=== PATIENT | male | born 1960 | race Caucasian/White ===

== ENCOUNTER 2023-10-13 05:41 | Observation (INO) | payer MEDICARE ==
--- NOTE | 2023-10-13 05:47 | ERPHSYRPT ---
- History of Present Illness Source: patient, police Exam Limitations: clinical condition, other (Personable intoxication) Timing/Duration: today Severity: moderate Associated Symptoms: other (Patient unable to provide accurate information) <GALEN JAMISON - Last Filed: 10/13/23 06:49> <RAPHAELBRIDGETTNEGRITA LANG - Last Filed: 10/13/23 14:55> - History of Present Illness Time Seen by Provider: 10/13/23 05:46 Physician History: This is a 63-year-old white male patient who was brought in by law enforcement secondary to him being found wandering [place] [address]. Patient was "in a manic state" and confused when officers arrived to evaluate him. He could not provide information. He was babbling incoherently. The patient could not provide us any medical history. The officers were bringing him into the emergency department when he suddenly collapsed and felt to the ground in their grasp and we brought him into the emergency room. Patient was maintaining his airway on his own. Suddenly he was more awake but still babbling incoherently. He is not answering questions but asking several questions unrelated to the situation. (GALEN JAMISON) Allergies/Adverse Reactions: No Known Drug Allergies Allergy (Unverified 10/13/23 06:16) pt states no allergies Home Medications: ALPRAZolam [Alprazolam] 2 mg PO UD 10/13/23 [History] levETIRAcetam [Levetiracetam] 500 mg PO BID 10/13/23 [History] Travel Risk - International Travel Have you traveled outside of the country in past 3 weeks: No - Emerging Infectious Disease Are you exhibiting symptoms associated with any current EIDs: No <GALEN JAMISON - Last Filed: 10/13/23 06:49> - Review of Systems Constitutional: No Symptoms Eyes: No Symptoms Ears, Nose, & Throat: No Symptoms Respiratory: No Symptoms Cardiac: No Symptoms Abdominal/Gastrointestinal: No Symptoms Genitourinary Symptoms: No Symptoms Musculoskeletal: No Symptoms Skin: Other (Diaphoresis generalized) Neurological: Other (Confused) Endocrine: Excessive Sweating Hematologic/Lymphatic: No Symptoms Immunological/Allergic: No Symptoms All Other Systems: Reviewed and Negative <GALEN JAMISON - Last Filed: 10/13/23 06:49> - Past Medical History Pertinent Past Medical History: Yes (Unknown at this time) <JAMISONGALEN KaceyCheri - Last Filed: 10/13/23 06:49> - Physical Exam General Appearance: moderate distress, anxiety, other (Confused) Eye Exam: PERRL/EOMI, eyes nml inspection Ears, Nose, Throat Exam: dry mucous membranes Neck Exam: normal inspection, non-tender, supple, full range of motion Respiratory Exam: normal breath sounds, lungs clear, airway intact, No chest tenderness, No respiratory distress Cardiovascular Exam: regular rate/rhythm, normal heart sounds, normal peripheral pulses Gastrointestinal/Abdomen Exam: soft, normal bowel sounds, No tenderness Rectal Exam: not done Back Exam: normal inspection, normal range of motion, No CVA tenderness, No vertebral tenderness Extremity Exam: normal inspection, normal range of motion, pelvis stable Neurologic Exam: alert, cooperative, cotton bag sewer II-XII nml as tested, confusion, intoxicated appearance Lymphatic Exam: No adenopathy SpO2 Interpretation: normal O2 Delivery: Room Air <GALEN JAMISON - Last Filed: 10/13/23 06:49> - Nursing Vital Signs Nursing Vital Signs: Initial Vital Signs Pulse Rate 127 H 10/13/23 05:45 Respiratory Rate 22 10/13/23 05:45 Blood Pressure 117/98 10/13/23 05:45 O2 Sat by Pulse Oximetry 99 10/13/23 05:45 Pain Scale Pain Intensity 0 - Course Nursing assessment & vital signs reviewed: Yes <GALEN JAMISON KaceyCheri - Last Filed: 10/13/23 06:49> Ordered Tests: Active Orders 24 hr Category Date Time Status Marketing Production Coordinator STAT Care 10/13/23 05:55 Completed Cath for Specimen-Straight STAT Care 10/13/23 05:56 Completed EKG-ER Only STAT Care 10/13/23 05:54 Completed IV Insertion STAT Care 10/13/23 05:54 Completed NPO (ED) STAT Care 10/13/23 05:55 Completed POCT Glucose Check STAT Care 10/13/23 05:54 Completed Pulse Oximetry (ED) STAT Care 10/13/23 05:54 Completed CHEST 1 VIEW (PORTABLE) Stat Exams 10/13/23 07:54 Completed HEAD WITHOUT CONTRAST [CT] Stat Exams 10/13/23 05:55 Completed ACETAMINOPHEN Stat Lab 10/13/23 06:05 Completed BLOOD CULTURE Stat Lab 10/13/23 06:15 Received BMP Stat Lab 10/13/23 09:15 Completed CBC W DIFF Stat Lab 10/13/23 06:05 Completed CMP Stat Lab 10/13/23 06:05 Completed ETHYL ALCOHOL Stat Lab 10/13/23 06:05 Completed Lactic Acid Stat Lab 10/13/23 05:54 Completed Lactic Acid Stat Lab 10/13/23 08:08 Completed SALICYLATE Stat Lab 10/13/23 06:05 Completed UA W/RFX UR CULTURE Stat Lab 10/13/23 08:25 Completed Urine Triage Profile Stat Lab 10/13/23 08:15 Completed Transfer Order Routine Transfer 10/13/23 Completed Medication Summary Generic Name Dose Route Start Last Admin Trade Name Elijah PRN Reason Stop Dose Admin Acetaminophen 650 mg 10/13/23 13:07 Acetaminophen 325 Mg Tablet PO 11/12/23 13:06 Q4H PRN PRN PAIN, FEVER, HEADACHE Folic Acid 1 mg 10/14/23 10:00 Folic Acid 1 Mg Tablet PO 11/13/23 09:59 DAILY JAMES Sodium Chloride 1,000 mls @ 100 mls/hr 10/13/23 13:15 Sodium Chloride 0.9% 1000 Ml IV 11/12/23 13:14 .Q10H JAMES Levetiracetam 500 mg 10/13/23 22:00 Levetiracetam 500 Mg Tablet PO 11/12/23 21:59 BID JAMES Lorazepam 1 mg 10/13/23 13:23 Lorazepam 2 Mg/1 Ml 2 Mg Vial IV 11/12/23 13:22 PRN PRN CIWA SCORE Multivitamins Therapeutic 1 tab 10/14/23 10:00 Multivitamins,Therapeutic 1 Tab Tab PO 11/13/23 09:59 QAM JAMES Ondansetron HCl 4 mg 10/13/23 13:07 Ondansetron Hcl 4 Mg/2 Ml Vial IV 11/12/23 13:06 Q6H PRN PRN NAUSEA/VOMITING Thiamine HCl 100 mg 10/14/23 10:00 Thiamine Hcl 100 Mg Tablet PO 11/13/23 09:59 DAILY JAMES Discontinued Medications Generic Name Dose Route Start Last Admin Trade Name Freoscar PRN Reason Stop Dose Admin Alprazolam 0.5 mg 10/13/23 07:28 10/13/23 07:43 Alprazolam 0.5 Mg Tablet PO 10/13/23 07:29 0.5 mg STAT ONE Administration Alprazolam Confirm 10/13/23 07:37 Alprazolam 0.5 Mg Tablet Administered 10/13/23 07:38 Dose 0.5 mg .ROUTE .STK-MED ONE Sodium Chloride 1,000 mls @ 999 mls/hr 10/13/23 05:54 10/13/23 09:25 Sodium Chloride 0.9% 1000 Ml IV 10/13/23 06:54 Infused .Q1H1M STA Infusion Sodium Chloride Confirm 10/13/23 06:19 Sodium Chloride 0.9% 1000 Ml Administered 10/13/23 06:20 Dose 1,000 mls @ ud .ROUTE .STK-MED ONE Lactated Ringer's 1,000 mls @ 999 mls/hr 10/13/23 06:26 10/13/23 10:06 Lactated Ringers IV 10/13/23 07:26 Not Given .Q1H1M ONE Levetiracetam 500 mg/ Dextrose 105 mls @ 400 mls/hr 10/13/23 07:28 10/13/23 07:48 IV 10/13/23 07:43 400 mls/hr STAT ONE Administration Lactated Ringer's Confirm 10/13/23 07:37 Lactated Ringers Administered 10/13/23 07:38 Dose 1,000 mls @ ud IV .STK-MED ONE Piperacillin Sod/Tazobactam 100 mls @ 200 mls/hr 10/13/23 07:54 10/13/23 08:19 Sod 3.375 gm/ Sodium Chloride IV 10/13/23 08:23 200 mls/hr STAT ONE Administration Sodium Chloride Confirm 10/13/23 07:58 Sodium Chloride 100ml Mini-Bag Plus Administered 10/13/23 07:59 Dose 100 mls @ ud IV .STK-MED ONE Lorazepam 1 mg 10/13/23 05:54 10/13/23 06:30 Lorazepam 2 Mg/1 Ml 2 Mg Vial IV 10/13/23 05:55 1 mg STAT ONE Administration Lorazepam Confirm 10/13/23 06:19 Lorazepam 2 Mg/1 Ml 2 Mg Vial Administered 10/13/23 06:20 Dose 2 mg .ROUTE .STK-MED ONE Piperacillin Sod/Tazobactam Sod Confirm 10/13/23 07:57 Piperacillin/Tazobactam Sodium 3.375 Gm Vial Administered 10/13/23 07:58 Dose 3.375 gm IV .STK-MED ONE Sodium Bicarbonate 50 meq 10/13/23 06:26 10/13/23 06:35 Sodium Bicarbonate 1 Meq/Ml 50ml Syringe IV 10/13/23 06:27 50 meq STAT ONE Administration Sodium Bicarbonate Confirm 10/13/23 06:35 Sodium Bicarbonate 1 Meq/Ml 50ml Syringe Administered 10/13/23 06:36 Dose 50 meq IV .STK-MED ONE Lab/Rad Data: Laboratory Result Diagrams 10/13/23 06:05 10/13/23 09:15 Laboratory Results 10/13/23 10/13/23 10/13/23 Range/Units 09:15 09:15 08:25 WBC (4.23-9.07) x10^3/uL RBC (4.63-6.08) x10^6/uL Hgb (13.7-17.5) g/dL Hct (40.1-51.0) % MCV (79.0-92.2) fL MCH (25.7-32.2) pg MCHC (32.3-36.5) g/dL RDW (11.6-14.4) % Plt Count (163-337) x10^3/uL MPV (9.4-12.4) fL Gran % (34.0-67.9) % Immature Gran % (Auto) (0.001-0.429) % Nucleat RBC Rel Count (0.00-0.2) % Eos # (Auto) (0.04-0.54) x10^3/uL Immature Gran # (Auto) (0.001-0.031) x10^3u/L Absolute Lymphs (auto) (1.32-3.57) x10^3/uL Absolute Monos (auto) (0.30-0.82) x10^3/uL Absolute Nucleated RBC (0.00-0.012) x10^3u/L Lymphocytes % (21.8-53.1) % Monocytes % (5.3-12.2) % Eosinophils % (0.8-7.0) % Basophils % (0.2-1.2) % Absolute Granulocytes (1.78-5.38) x10^3/uL Basophils # (0.01-0.08) x10^3/uL Sodium 139 (135-145) mmol/L Potassium 3.5 (3.5-5.1) mmol/L Chloride 108 H (98-107) mmol/L Carbon Dioxide 24 (22-30) mmol/L Anion Gap 10.8 (5-15) MEQ/L BUN 19 (9-20) mg/dL Creatinine 0.70 (0.66-1.25) mg/dL Estimated GFR 102.3 ML/MIN Glucose 107 H (74-106) mg/dL Lactic Acid (0.4-2.0) Calcium 8.6 (8.4-10.2) mg/dL Total Bilirubin (0.2-1.3) mg/dL AST (17-59) U/L ALT (0-50) U/L Alkaline Phosphatase (38-126) U/L Ammonia (9-30) umol/L Serum Total Protein (6.3-8.2) g/dL Albumin (3.5-5.0) g/dL Procalcitonin 0.055 (0.030-0.080) ng/mL Urine Color Yellow (Yellow) Urine Appearance Clear (Clear) Urine pH 6.5 (4.6-8.0) Ur Specific Holder <=1.005 (1.005-1.030) Urine Protein Negative (Negative) Urine Glucose (UA) Negative (Negative) mg/dL Urine Ketones Negative (Negative) Urine Blood Negative (Negative) Urine Nitrite Negative (Negative) Urine Bilirubin Negative (Negative) Urine Urobilinogen 0.2 (0.2) mg/dL Ur Leukocyte Esterase Negative (Negative) U Hyaline Cast (Auto) NONE SEEN (0-2) /LPF Urine Microscopic RBC 0-2 (0-5) /HPF Urine Microscopic WBC 0-2 (0-5) /HPF Ur Epithelial Cells None Seen (None Seen) /HPF Urine Bacteria None Seen (None Seen) /HPF Urine Culture Reflexed NO (NO) Salicylates (2-20) mg/dL Urine Opiates Level (NEGATIVE) Ur Methadone (NEGATIVE) Acetaminophen (10-30) ug/ml Urine Barbiturates (NEGATIVE) Ur Phencyclidine (PCP) (NEGATIVE) Urine Amphetamine (NEGATIVE) U Benzodiazepine Level (NEGATIVE) Urine Cocaine (NEGATIVE) Urine Marijuana (THC) (NEGATIVE) Ethyl Alcohol (0-10) mg/dL 10/13/23 10/13/23 10/13/23 Range/Units 08:15 08:08 06:05 WBC (4.23-9.07) x10^3/uL RBC (4.63-6.08) x10^6/uL Hgb (13.7-17.5) g/dL Hct (40.1-51.0) % MCV (79.0-92.2) fL MCH (25.7-32.2) pg MCHC (32.3-36.5) g/dL RDW (11.6-14.4) % Plt Count (163-337) x10^3/uL MPV (9.4-12.4) fL Gran % (34.0-67.9) % Immature Gran % (Auto) (0.001-0.429) % Nucleat RBC Rel Count (0.00-0.2) % Eos # (Auto) (0.04-0.54) x10^3/uL Immature Gran # (Auto) (0.001-0.031) x10^3u/L Absolute Lymphs (auto) (1.32-3.57) x10^3/uL Absolute Monos (auto) (0.30-0.82) x10^3/uL Absolute Nucleated RBC (0.00-0.012) x10^3u/L Lymphocytes % (21.8-53.1) % Monocytes % (5.3-12.2) % Eosinophils % (0.8-7.0) % Basophils % (0.2-1.2) % Absolute Granulocytes (1.78-5.38) x10^3/uL Basophils # (0.01-0.08) x10^3/uL Sodium (135-145) mmol/L Potassium (3.5-5.1) mmol/L Chloride (98-107) mmol/L Carbon Dioxide (22-30) mmol/L Anion Gap (5-15) MEQ/L BUN (9-20) mg/dL Creatinine (0.66-1.25) mg/dL Estimated GFR ML/MIN Glucose (74-106) mg/dL Lactic Acid 1.1 (0.4-2.0) Calcium (8.4-10.2) mg/dL Total Bilirubin (0.2-1.3) mg/dL AST (17-59) U/L ALT (0-50) U/L Alkaline Phosphatase (38-126) U/L Ammonia < 9 L (9-30) umol/L Serum Total Protein (6.3-8.2) g/dL Albumin (3.5-5.0) g/dL Procalcitonin (0.030-0.080) ng/mL Urine Color (Yellow) Urine Appearance (Clear) Urine pH (4.6-8.0) Ur Specific Holder (1.005-1.030) Urine Protein (Negative) Urine Glucose (UA) (Negative) mg/dL Urine Ketones (Negative) Urine Blood (Negative) Urine Nitrite (Negative) Urine Bilirubin (Negative) Urine Urobilinogen (0.2) mg/dL Ur Leukocyte Esterase (Negative) U Hyaline Cast (Auto) (0-2) /LPF Urine Microscopic RBC (0-5) /HPF Urine Microscopic WBC (0-5) /HPF Ur Epithelial Cells (None Seen) /HPF Urine Bacteria (None Seen) /HPF Urine Culture Reflexed (NO) Salicylates (2-20) mg/dL Urine Opiates Level NEGATIVE (NEGATIVE) Ur Methadone NEGATIVE (NEGATIVE) Acetaminophen (10-30) ug/ml Urine Barbiturates NEGATIVE (NEGATIVE) Ur Phencyclidine (PCP) NEGATIVE (NEGATIVE) Urine Amphetamine NEGATIVE (NEGATIVE) U Benzodiazepine Level NEGATIVE (NEGATIVE) Urine Cocaine NEGATIVE (NEGATIVE) Urine Marijuana (THC) NEGATIVE (NEGATIVE) Ethyl Alcohol (0-10) mg/dL 10/13/23 10/13/23 10/13/23 Range/Units 06:05 06:05 05:54 WBC 10.1 H (4.23-9.07) x10^3/uL RBC 4.44 L (4.63-6.08) x10^6/uL Hgb 13.6 L (13.7-17.5) g/dL Hct 43.9 (40.1-51.0) % MCV 98.9 H (79.0-92.2) fL MCH 30.6 (25.7-32.2) pg MCHC 31.0 L (32.3-36.5) g/dL RDW 13.2 (11.6-14.4) % Plt Count 316 (163-337) x10^3/uL MPV 9.8 (9.4-12.4) fL Gran % 77.6 H (34.0-67.9) % Immature Gran % (Auto) 0.6 H (0.001-0.429) % Nucleat RBC Rel Count 0.0 (0.00-0.2) % Eos # (Auto) 0.05 (0.04-0.54) x10^3/uL Immature Gran # (Auto) 0.06 H (0.001-0.031) x10^3u/L Absolute Lymphs (auto) 1.34 (1.32-3.57) x10^3/uL Absolute Monos (auto) 0.79 (0.30-0.82) x10^3/uL Absolute Nucleated RBC 0.00 (0.00-0.012) x10^3u/L Lymphocytes % 13.3 L (21.8-53.1) % Monocytes % 7.8 (5.3-12.2) % Eosinophils % 0.5 L (0.8-7.0) % Basophils % 0.2 (0.2-1.2) % Absolute Granulocytes 7.81 H (1.78-5.38) x10^3/uL Basophils # 0.02 (0.01-0.08) x10^3/uL Sodium 136 (135-145) mmol/L Potassium 3.3 L (3.5-5.1) mmol/L Chloride 105 (98-107) mmol/L Carbon Dioxide 10 L* (22-30) mmol/L Anion Gap 24.0 H (5-15) MEQ/L BUN 22 H (9-20) mg/dL Creatinine 0.85 (0.66-1.25) mg/dL Estimated GFR 96.4 ML/MIN Glucose 158 H (74-106) mg/dL Lactic Acid 16.5 H (0.4-2.0) Calcium 9.8 (8.4-10.2) mg/dL Total Bilirubin 0.50 (0.2-1.3) mg/dL AST 25 (17-59) U/L ALT 27 (0-50) U/L Alkaline Phosphatase 70 (38-126) U/L Ammonia (9-30) umol/L Serum Total Protein 7.7 (6.3-8.2) g/dL Albumin 4.4 (3.5-5.0) g/dL Procalcitonin (0.030-0.080) ng/mL Urine Color (Yellow) Urine Appearance (Clear) Urine pH (4.6-8.0) Ur Specific Holder (1.005-1.030) Urine Protein (Negative) Urine Glucose (UA) (Negative) mg/dL Urine Ketones (Negative) Urine Blood (Negative) Urine Nitrite (Negative) Urine Bilirubin (Negative) Urine Urobilinogen (0.2) mg/dL Ur Leukocyte Esterase (Negative) U Hyaline Cast (Auto) (0-2) /LPF Urine Microscopic RBC (0-5) /HPF Urine Microscopic WBC (0-5) /HPF Ur Epithelial Cells (None Seen) /HPF Urine Bacteria (None Seen) /HPF Urine Culture Reflexed (NO) Salicylates < 1.0 L (2-20) mg/dL Urine Opiates Level (NEGATIVE) Ur Methadone (NEGATIVE) Acetaminophen < 10 L (10-30) ug/ml Urine Barbiturates (NEGATIVE) Ur Phencyclidine (PCP) (NEGATIVE) Urine Amphetamine (NEGATIVE) U Benzodiazepine Level (NEGATIVE) Urine Cocaine (NEGATIVE) Urine Marijuana (THC) (NEGATIVE) Ethyl Alcohol < 10 (0-10) mg/dL <GALEN JAMISON - Last Filed: 10/13/23 06:49> - Progress Discussed with : Other Counseled pt/family regarding: lab results, diagnosis, rad results <NEGRITA ZARAGOZA - Last Filed: 10/13/23 14:55> - Progress Progress Note: 10/13/23 05:52 My medical decision making and the assignment of moderate to high complexity to this patient's medical issue today is based on review of the patient's past medical history, review of the patient's medication list, physical findings on examination and history of present illness. Patient unable to provide accurate information because of his confusion and anxiety. He is awake and alert but confused. The workup in this patient includes placement of intravenous line, infusion of normal saline solution, infusion of Zofran, infusion of 1 mg of Ativan, urinalysis, urine drug triage, ethyl alcohol level, salicylate level, acetaminophen level, twelve-lead EKG, CBC, CMP, ammonia level and CT scan of the head. 10/13/23 05:53 Differential diagnosis includes but is not limited to altered mental status secondary to intoxication with drugs or alcohol, acute intracranial abnormality, electrolyte abnormalities, dehydration, arrhythmias 10/13/23 06:06 Patient is reexamined. He is calming down a bit but still very confused. He is still not able to provide us medical history. However, us administrative law judge stated that they have seen him recently and he does have psychiatric issues. He has told the officers that he does not have money to purchase his medications. Patient has had paranoia behavior in the past. He is currently saying he does not have any pain issues 10/13/23 06:49 I am transferring care of this patient to Dr. Zaragoza at shift change. He will follow-up on the pending studies and make final disposition. (GALEN JAMISON) 10/13/23 14:47 Assumed care patient at shift change from . Patient is a 63-year-old male that was found at a local convenience store disoriented with a gun on his person. Police brought the patient to the ER for evaluation and patient had a seizure upon arrival at the hospital. He was treated with 1 mg IV Ativan. upon examining patient, he was alert with a good airway and oriented to name only. Lungs are clear to auscultation bilaterally/ heart regular rate rhythm without murmur/ abdomen with good bowel sounds, soft, nontender to palpation/ there was no focal weakness and cranial nerves II through XII are grossly intact. Patient states that he is usually on Keppra for seizure disorder and also has been on Xanax for many years but has not had any x 4 to 5 days. I ordered 500 mg IV Keppra and gave the patient 0.[address] of the head was negative per Dr. Dorado. Patient given 2 L normal saline bolus with normalization of his lactic acid. I also gave the patient 3.375 g IV Zosyn due to his initial grossly elevated lactic acid before the normalization after fluids. Patient appears to be stable with symptoms most likely be due to a seizure due to noncompliance with his Keppra and also benzodiazepine withdrawal as he has not been taking his Xanax. Dr. Sandoval, Hospitalist, graciously agreed to observe the patient overnight. Patient's urine drug screen, alcohol level, Tylenol, and salicylate level were all negative. Patient with normal strength without focal weakness and was alert and oriented to name only upon admittance. 10/13/23 14:50 10/13/23 14:51 10/13/23 14:52 (NEGRITA ZARAGOZA) Medical Desision Making - Diagnostic Testing Diagnostic test were ordered, analyzed, and reviewed by me: Yes Radiological Interpretation: Reviewed by me - Risk of complications The pt has a high risk of morbidity or mortality based on: Drug therapy requiring intensive monitoring for toxicity, Decision regarding hospitilization or escalation of hosp level of care <NEGRITA ZARAGOZA - Last Filed: 10/13/23 14:55> - Departure Departure Disposition: Observation Critical Care Time: No <GALEN JAMISON - Last Filed: 10/13/23 06:49> - Departure Critical Care Time: No <NEGRITA ZARAGOZA - Last Filed: 10/13/23 14:55> - Departure Clinical Impression: Altered mental status, Benzodiazepine withdrawal, Seizure, Encephalopathy Condition: Fair
[2023-10-13] MEDS ORDERED: Sodium Chloride 0.9% 1000 ML 1,000 ML ONE (06:19)
[2023-10-13] MEDS ORDERED: Ativan 2 MG/1 ML VIAL ONE (06:19)
[2023-10-13] MEDS: Sodium Chloride 0.9% 1000 ML 1,000 ML IV STA (06:26)
[2023-10-13 06:30] LABS: Absolute Neutrophil Ct (ANC) 7.81 x10^3/uL (1.78-5.38); BASOPHIL % 0.2 % (0.2-1.2); Basophil (Absolute #) 0.02 x10^3/uL (0.01-0.08); Eosinophil % 0.5 % (0.8-7.0); Eosinophil (Absolute #) 0.05 x10^3/uL (0.04-0.54); Hematocrit 43.9 % (40.1-51.0); Hemoglobin 13.6 g/dL (13.7-17.5); IMMATURE GRAN # 0.06 x10^3u/L (0.001-0.031); IMMATURE GRAN % 0.6 % (0.001-0.429); Lymphocyte (Absolute #) 1.34 x10^3/uL (1.32-3.57); Lymphocytes % 13.3 % (21.8-53.1); Mean Cell Volume 98.9 fL (79.0-92.2); Mean Corpuscular Hemoglobin 30.6 pg (25.7-32.2); Mean Platelet Volume 9.8 fL (9.4-12.4); Monocyte (Absolute #) 0.79 x10^3/uL (0.30-0.82); Monocytes % 7.8 % (5.3-12.2); Neutrophil % 77.6 % (34.0-67.9); Platelet Count 316 x10^3/uL (163-337); Red Blood Count 4.44 x10^6/uL (4.63-6.08); Red Cell Distribution Width 13.2 % (11.6-14.4); White Blood Count 10.1 x10^3/uL (4.23-9.07)
[2023-10-13] MEDS: Ativan 2 MG/1 ML VIAL IV ONE (06:30)
[2023-10-13] MEDS: SODIUM BICARBONATE 50 MEQ/50 ML ABBOJECT IV ONE (06:35)
[2023-10-13] MEDS ORDERED: SODIUM BICARBONATE 50 MEQ/50 ML ABBOJECT IV ONE (06:35)
[2023-10-13 06:38] LABS: ACETAMINOPHEN < 10 ug/ml (10-30); ALBUMIN 4.4 g/dL (3.5-5.0); ALKALINE PHOSPHATASE 70 U/L (38-126); BLOOD UREA NITROGEN 22 mg/dL (9-20); CHLORIDE 105 mmol/L (98-107); Calcium 9.8 mg/dL (8.4-10.2); Creatinine 1 0.85 mg/dL (0.66-1.25); EST GLOMERULAR FILTRATION RATE 96.4 ML/MIN; ETHYL ALCOHOL < 10 mg/dL (0-10); Glucose 158 mg/dL (74-106); Potassium 3.3 mmol/L (3.5-5.1); SALICYLATE < 1.0 mg/dL (2-20); SGOT/AST 25 U/L (17-59); SODIUM 136 mmol/L (135-145); Total Protein 7.7 g/dL (6.3-8.2)
[2023-10-13 06:50] LABS: Carbon Dioxide 10 mmol/L (22-30); SGPT/ALT 27 U/L (0-50)
--- NOTE | 2023-10-13 07:30 | XRAY ---
CLINICAL HISTORY: Altered mental status COMPARISON: None TECHNIQUE: Multiple axial images are obtained from the skull base to the vertex without contrast. CT scan was performed according to ALARA (as low as reasonably achievable). FINDINGS: The brain shows normal morphology, attenuation, and volume for age. No evidence of space occupying lesion, hemorrhage, edema, mass effect, midline shift, extra axial collection, or hydrocephalus is noted. Ventricles, sulci, and basal cisterns are symmetric and normal in size and configuration. The salomon-white matter differentiation is preserved. Visualized paranasal sinuses and mastoid air cells are well aerated. Orbital contents are within normal limits. Bony structures are intact. IMPRESSION: 1. No evidence of acute intracranial abnormality is demonstrated. Electronically Signed by: Jonathan Gleason MD. (10/13/2023 07:26:57 EDT)
[2023-10-13] MEDS ORDERED: Lactated Ringers 1,000 ML IV ONE (07:37)
[2023-10-13] MEDS ORDERED: xanAX 0.5 MG ONE (07:37)
[2023-10-13] MEDS: Lactated Ringers 1,000 ML IV ONE (07:42)
[2023-10-13] MEDS: xanAX 0.5 MG PO ONE (07:43)
[2023-10-13] MEDS: Keppra 500 MG/5 ML*** 500 MG in D5w 100ML Mini Bag 100 ML 100 ML IV ONE (07:48)
[2023-10-13] MEDS ORDERED: PIPERACILLIN/TAZOBACTAM IV ONE (07:57)
[2023-10-13] MEDS ORDERED: Sodium Chloride 100ML MINI-BAG PLUS 100 ML IV ONE (07:58)
[2023-10-13] MEDS: PIPERACILLIN/TAZOBACTAM 3.375 GM in Sodium Chloride 100ML MINI-BAG PLUS 100 ML IV ONE (08:19)
[2023-10-13 08:45] LABS: Appearance Clear (Clear); Bacteria None Seen /HPF (None Seen); Bilirubin Negative (Negative); Blood Negative (Negative); Epithelial Cells None Seen /HPF (None Seen); Glucose, Urine Negative (Negative); Hyaline Casts NONE SEEN /LPF (0-2); Ketones Negative (Negative); Leukocyte Esterase Negative (Negative); Nitrite Negative (Negative); Ph 6.5 (4.6-8.0); Protein,Urine Dip Negative (Negative); RBC 0-2 /HPF (0-5); Specific Gravity <=1.005 (1.005-1.030); Urobilinogen 0.2 mg/dL (0.2); WBC 0-2 /HPF (0-5)
[2023-10-13 08:49] LABS: ADD URINE CULTURE? NO (NO)
[2023-10-13 09:00] LABS: Amphetamine,Urine NEGATIVE (NEGATIVE); Barbiturate,Urine NEGATIVE (NEGATIVE); Benzodiazepine,Urine NEGATIVE (NEGATIVE); Cocaine,Urine NEGATIVE (NEGATIVE); Methadone,Urine NEGATIVE (NEGATIVE); Opiate,Urine NEGATIVE (NEGATIVE); PCP,Urine NEGATIVE (NEGATIVE); THC,Urine NEGATIVE (NEGATIVE)
--- NOTE | 2023-10-13 09:29 | XRAY ---
Indication: Lethargy. Comparison: None Portable chest underinflated and clear. Heart not enlarged. Bony thorax intact with osteopenia, mild degenerative changes, mild dextroscoliosis, and cervical fusion hardware. Impression: Nonacute underinflated chest.
[2023-10-13 09:37] LABS: ANION GAP 10.8 MEQ/L (5-15); Calcium 8.6 mg/dL (8.4-10.2); Creatinine 1 0.7 mg/dL (0.66-1.25); EST GLOMERULAR FILTRATION RATE 102.3 ML/MIN; Potassium 3.5 mmol/L (3.5-5.1)
--- NOTE | 2023-10-13 12:40 | PCM.HP ---
<QIANA VARGAS - Last Filed: 10/13/23 13:00> History of Present Illness - Chief Complaint Chief Complaint: Seizure/ encephalopathy/ benzo withdrawal Date: 10/13/23 History of Present Illness: is a 63 year old male who was brought in per ER documentation by law enforcement for evaluation after finding [place] on the highway in what appeared to be a "manic state" with associated confusion. Patient is now A&O to self,place, and time but unable to provide medical history other than that he has a h/o seizures and is on Keppra/Alprazolam at home. He is not able to appropriately answer questions. He does endorse left neck/ear pain that he thinks has been there for about a week. On exam this is a hard approximately 13 cm x13.5 cm inch mass that extends from the left mastoid to mid mandible and neck. Neuro exam negative. In ED, vitals stable. EKG NS with no ST elevations/deviations. CT head with no acute findings. CXR with no acute findings. Lab findings remarkable for mild leukocytosis with wbc at 10.1, macrocytic anemia with hgb at 13.6, lactic acid initially elevated at 16.5, now wnl at 1.1. Of note urine drug screen/alcohol negative. - Review of Systems Constitutional: Fatigue, Weakness Eyes: No Symptoms Ears, Nose, & Throat: No Symptoms Respiratory: No Symptoms Cardiac: No Symptoms All Other Systems: Unable due to condition Medications & Allergies Home Medications: Home Medication List ALPRAZolam [Alprazolam] 2 mg PO UD 10/13/23 [History Confirmed 10/13/23] levETIRAcetam [Levetiracetam] 500 mg PO BID 10/13/23 [History Confirmed 10/13/23] Allergies/Adverse Reactions: Allergies Allergy/AdvReac Type Severity Reaction Status Date / Time No Known Drug Allergies Allergy Unverified 10/13/23 06:16 - Past Medical History Past Medical History: Yes (Unknown at this time) Neurological History: Seizures Comment: pt poor historian and not answering questions at this time. pt does sta te he has had seizures before and has hx of mental illness- unknown dx - Past Surgical History Other Surgical History: unknown - Social History Smoking Status: Never smoker Alcohol: None Drug Use: none - Social Determinants of Health Will the patient participate in the screening: Declined to provide - Physical Exam Vital Signs: Vital Signs - 24 hr Temp Pulse Resp BP BP Pulse Ox 10/13/23 10:33 98.3 F 88 17 144/87 98 10/13/23 10:00 87 17 139/94 98 10/13/23 09:30 88 24 135/97 10/13/23 09:02 89 16 151/69 96 10/13/23 08:34 90 25 H 120/76 96 10/13/23 08:00 134/89 96 10/13/23 07:32 94 H 19 161/94 98 10/13/23 07:00 99 H 26 H 134/90 10/13/23 06:51 100 H 16 121/92 96 10/13/23 06:30 112 H 18 133/90 97 10/13/23 06:20 97 10/13/23 05:54 99 10/13/23 05:45 127 H 22 117/98 99 General Appearance: lethargy Neurologic Exam: alert, cooperative, napkin band wrapper II-XII nml as tested, disoriented, confusion Eye Exam: PERRL/EOMI Ears, Nose, Throat Exam: dry mucous membranes Neck Exam: other (Left neck mass approximately 13x13.5 cm, hard extending from parotideomasseteric region/mastoid region/mandible/ upper neck) Respiratory Exam: normal breath sounds, lungs clear Cardiovascular Exam: regular rate/rhythm, normal heart sounds Gastrointestinal/Abdomen Exam: soft, normal bowel sounds Rectal Exam: deferred Back Exam: normal inspection Extremity Exam: normal inspection Skin Exam: normal color Results - Labs Lab/Micro Results: Lab Results-Last 24 Hours 10/13/23 10/13/23 10/13/23 Range/Units 05:54 06:05 06:05 WBC 10.1 H (4.23-9.07) x10^3/uL RBC 4.44 L (4.63-6.08) x10^6/uL Hgb 13.6 L (13.7-17.5) g/dL Hct 43.9 (40.1-51.0) % MCV 98.9 H (79.0-92.2) fL MCH 30.6 (25.7-32.2) pg MCHC 31.0 L (32.3-36.5) g/dL RDW 13.2 (11.6-14.4) % Plt Count 316 (163-337) x10^3/uL MPV 9.8 (9.4-12.4) fL Gran % 77.6 H (34.0-67.9) % Immature Gran % (Auto) 0.6 H (0.001-0.429) % Nucleat RBC Rel Count 0.0 (0.00-0.2) % Eos # (Auto) 0.05 (0.04-0.54) x10^3/uL Immature Gran # (Auto) 0.06 H (0.001-0.031) x10^3u/L Absolute Lymphs (auto) 1.34 (1.32-3.57) x10^3/uL Absolute Monos (auto) 0.79 (0.30-0.82) x10^3/uL Absolute Nucleated RBC 0.00 (0.00-0.012) x10^3u/L Lymphocytes % 13.3 L (21.8-53.1) % Monocytes % 7.8 (5.3-12.2) % Eosinophils % 0.5 L (0.8-7.0) % Basophils % 0.2 (0.2-1.2) % Absolute Granulocytes 7.81 H (1.78-5.38) x10^3/uL Basophils # 0.02 (0.01-0.08) x10^3/uL Sodium 136 (135-145) mmol/L Potassium 3.3 L (3.5-5.1) mmol/L Chloride 105 (98-107) mmol/L Carbon Dioxide 10 L* (22-30) mmol/L Anion Gap 24.0 H (5-15) MEQ/L BUN 22 H (9-20) mg/dL Creatinine 0.85 (0.66-1.25) mg/dL Estimated GFR 96.4 ML/MIN Glucose 158 H (74-106) mg/dL Lactic Acid 16.5 H (0.4-2.0) Calcium 9.8 (8.4-10.2) mg/dL Total Bilirubin 0.50 (0.2-1.3) mg/dL AST 25 (17-59) U/L ALT 27 (0-50) U/L Alkaline Phosphatase 70 (38-126) U/L Ammonia (9-30) umol/L Serum Total Protein 7.7 (6.3-8.2) g/dL Albumin 4.4 (3.5-5.0) g/dL Urine Color (Yellow) Urine Appearance (Clear) Urine pH (4.6-8.0) Ur Specific [place] (1.005-1.030) Urine Protein (Negative) Urine Glucose (UA) (Negative) mg/dL Urine Ketones (Negative) Urine Blood (Negative) Urine Nitrite (Negative) Urine Bilirubin (Negative) Urine Urobilinogen (0.2) mg/dL Ur Leukocyte Esterase (Negative) U Hyaline Cast (Auto) (0-2) /LPF Urine Microscopic RBC (0-5) /HPF Urine Microscopic WBC (0-5) /HPF Ur Epithelial Cells (None Seen) /HPF Urine Bacteria (None Seen) /HPF Urine Culture Reflexed (NO) Salicylates < 1.0 L (2-20) mg/dL Urine Opiates Level (NEGATIVE) Ur Methadone (NEGATIVE) Acetaminophen < 10 L (10-30) ug/ml Urine Barbiturates (NEGATIVE) Ur Phencyclidine (PCP) (NEGATIVE) Urine Amphetamine (NEGATIVE) U Benzodiazepine Level (NEGATIVE) Urine Cocaine (NEGATIVE) Urine Marijuana (THC) (NEGATIVE) Ethyl Alcohol < 10 (0-10) mg/dL 10/13/23 10/13/23 10/13/23 Range/Units 06:05 08:08 08:15 WBC (4.23-9.07) x10^3/uL RBC (4.63-6.08) x10^6/uL Hgb (13.7-17.5) g/dL Hct (40.1-51.0) % MCV (79.0-92.2) fL MCH (25.7-32.2) pg MCHC (32.3-36.5) g/dL RDW (11.6-14.4) % Plt Count (163-337) x10^3/uL MPV (9.4-12.4) fL Gran % (34.0-67.9) % Immature Gran % (Auto) (0.001-0.429) % Nucleat RBC Rel Count (0.00-0.2) % Eos # (Auto) (0.04-0.54) x10^3/uL Immature Gran # (Auto) (0.001-0.031) x10^3u/L Absolute Lymphs (auto) (1.32-3.57) x10^3/uL Absolute Monos (auto) (0.30-0.82) x10^3/uL Absolute Nucleated RBC (0.00-0.012) x10^3u/L Lymphocytes % (21.8-53.1) % Monocytes % (5.3-12.2) % Eosinophils % (0.8-7.0) % Basophils % (0.2-1.2) % Absolute Granulocytes (1.78-5.38) x10^3/uL Basophils # (0.01-0.08) x10^3/uL Sodium (135-145) mmol/L Potassium (3.5-5.1) mmol/L Chloride (98-107) mmol/L Carbon Dioxide (22-30) mmol/L Anion Gap (5-15) MEQ/L BUN (9-20) mg/dL Creatinine (0.66-1.25) mg/dL Estimated GFR ML/MIN Glucose (74-106) mg/dL Lactic Acid 1.1 (0.4-2.0) Calcium (8.4-10.2) mg/dL Total Bilirubin (0.2-1.3) mg/dL AST (17-59) U/L ALT (0-50) U/L Alkaline Phosphatase (38-126) U/L Ammonia < 9 L (9-30) umol/L Serum Total Protein (6.3-8.2) g/dL Albumin (3.5-5.0) g/dL Urine Color (Yellow) Urine Appearance (Clear) Urine pH (4.6-8.0) Ur Specific [place] (1.005-1.030) Urine Protein (Negative) Urine Glucose (UA) (Negative) mg/dL Urine Ketones (Negative) Urine Blood (Negative) Urine Nitrite (Negative) Urine Bilirubin (Negative) Urine Urobilinogen (0.2) mg/dL Ur Leukocyte Esterase (Negative) U Hyaline Cast (Auto) (0-2) /LPF Urine Microscopic RBC (0-5) /HPF Urine Microscopic WBC (0-5) /HPF Ur Epithelial Cells (None Seen) /HPF Urine Bacteria (None Seen) /HPF Urine Culture Reflexed (NO) Salicylates (2-20) mg/dL Urine Opiates Level NEGATIVE (NEGATIVE) Ur Methadone NEGATIVE (NEGATIVE) Acetaminophen (10-30) ug/ml Urine Barbiturates NEGATIVE (NEGATIVE) Ur Phencyclidine (PCP) NEGATIVE (NEGATIVE) Urine Amphetamine NEGATIVE (NEGATIVE) U Benzodiazepine Level NEGATIVE (NEGATIVE) Urine Cocaine NEGATIVE (NEGATIVE) Urine Marijuana (THC) NEGATIVE (NEGATIVE) Ethyl Alcohol (0-10) mg/dL 10/13/23 10/13/23 Range/Units 08:25 09:15 WBC (4.23-9.07) x10^3/uL RBC (4.63-6.08) x10^6/uL Hgb (13.7-17.5) g/dL Hct (40.1-51.0) % MCV (79.0-92.2) fL MCH (25.7-32.2) pg MCHC (32.3-36.5) g/dL RDW (11.6-14.4) % Plt Count (163-337) x10^3/uL MPV (9.4-12.4) fL Gran % (34.0-67.9) % Immature Gran % (Auto) (0.001-0.429) % Nucleat RBC Rel Count (0.00-0.2) % Eos # (Auto) (0.04-0.54) x10^3/uL Immature Gran # (Auto) (0.001-0.031) x10^3u/L Absolute Lymphs (auto) (1.32-3.57) x10^3/uL Absolute Monos (auto) (0.30-0.82) x10^3/uL Absolute Nucleated RBC (0.00-0.012) x10^3u/L Lymphocytes % (21.8-53.1) % Monocytes % (5.3-12.2) % Eosinophils % (0.8-7.0) % Basophils % (0.2-1.2) % Absolute Granulocytes (1.78-5.38) x10^3/uL Basophils # (0.01-0.08) x10^3/uL Sodium 139 (135-145) mmol/L Potassium 3.5 (3.5-5.1) mmol/L Chloride 108 H (98-107) mmol/L Carbon Dioxide 24 (22-30) mmol/L Anion Gap 10.8 (5-15) MEQ/L BUN 19 (9-20) mg/dL Creatinine 0.70 (0.66-1.25) mg/dL Estimated GFR 102.3 ML/MIN Glucose 107 H (74-106) mg/dL Lactic Acid (0.4-2.0) Calcium 8.6 (8.4-10.2) mg/dL Total Bilirubin (0.2-1.3) mg/dL AST (17-59) U/L ALT (0-50) U/L Alkaline Phosphatase (38-126) U/L Ammonia (9-30) umol/L Serum Total Protein (6.3-8.2) g/dL Albumin (3.5-5.0) g/dL Urine Color Yellow (Yellow) Urine Appearance Clear (Clear) Urine pH 6.5 (4.6-8.0) Ur Specific [place] <=1.005 (1.005-1.030) Urine Protein Negative (Negative) Urine Glucose (UA) Negative (Negative) mg/dL Urine Ketones Negative (Negative) Urine Blood Negative (Negative) Urine Nitrite Negative (Negative) Urine Bilirubin Negative (Negative) Urine Urobilinogen 0.2 (0.2) mg/dL Ur Leukocyte Esterase Negative (Negative) U Hyaline Cast (Auto) NONE SEEN (0-2) /LPF Urine Microscopic RBC 0-2 (0-5) /HPF Urine Microscopic WBC 0-2 (0-5) /HPF Ur Epithelial Cells None Seen (None Seen) /HPF Urine Bacteria None Seen (None Seen) /HPF Urine Culture Reflexed NO (NO) Salicylates (2-20) mg/dL Urine Opiates Level (NEGATIVE) Ur Methadone (NEGATIVE) Acetaminophen (10-30) ug/ml Urine Barbiturates (NEGATIVE) Ur Phencyclidine (PCP) (NEGATIVE) Urine Amphetamine (NEGATIVE) U Benzodiazepine Level (NEGATIVE) Urine Cocaine (NEGATIVE) Urine Marijuana (THC) (NEGATIVE) Ethyl Alcohol (0-10) mg/dL Accuchecks Date 10/13/23 Time 08:26 - Radiology Impressions Radiology Exams & Impressions: Radiology Procedures Category Date Time Status CHEST 1 VIEW (PORTABLE) Stat Exams 06/24/24 07:54 Completed HEAD WITHOUT CONTRAST [CT] Stat Exams 10/13/23 05:55 Completed Assessment/Plan (1) Encephalopathy Current Visit: Yes Status: Acute Assessment & Plan: -Head CT with no acute findings/ ? if seizure related -CXR/UA/UDS unremarkable -EKG NS with no ST elevation/deviations -NPO until swallow study -ammonia level WNL -IVF -TSH, B12 -Bcult pending -avoid narcotics -ativan prn for severe agitation -CIWA protocol ? withdrawal -orientation protocol Code(s): G93.40 - ENCEPHALOPATHY, UNSPECIFIED (2) History of seizure disorder Current Visit: Yes Status: Acute Assessment & Plan: -continue home keppra/ativa -seizure precautions -ativan prn for seizure activity -neuro checks -supplemental oxygen PRN -ABG if significant lethargy/hypoxia Code(s): Z86.69 - PERSONAL HISTORY OF DIS OF THE NERVOUS SYS AND SENSE ORGANS (3) Leukocytosis Current Visit: Yes Status: Acute Assessment & Plan: -mild -UA negative -CXR negative -bcult pending -CT neck ordered for palpable mass to left neck -afebrile Code(s): D72.829 - ELEVATED WHITE BLOOD CELL COUNT, UNSPECIFIED (4) Mass of left side of neck Current Visit: Yes Status: Acute Assessment & Plan: -Patient states this has been there for about a week - patient not reliable historian -CT neck w/ co for evaluation VTE: Bilateral SCD PPI: Protonix Dispo 1-2 days Code: Full Code(s): R22.1 - LOCALIZED SWELLING, MASS AND LUMP, NECK <WESTON PADILLA - Last Filed: 10/13/23 22:52> History of Present Illness - Chief Complaint History of Present Illness: is a 63 year old male. - Physical Exam Vital Signs: Vital Signs - 24 hr Temp Pulse Resp BP BP Pulse Ox 10/13/23 16:00 98.8 F 71 17 143/77 97 10/13/23 13:07 86 16 98 10/13/23 11:58 98.3 F 88 17 144/87 98 10/13/23 10:33 98.3 F 88 17 144/87 98 10/13/23 10:00 87 17 139/94 98 10/13/23 09:30 88 24 135/97 10/13/23 09:02 89 16 151/69 96 10/13/23 08:34 90 25 H 120/76 96 10/13/23 08:00 134/89 96 10/13/23 07:32 94 H 19 161/94 98 10/13/23 07:00 99 H 26 H 134/90 10/13/23 06:51 100 H 16 121/92 96 10/13/23 06:30 112 H 18 133/90 97 10/13/23 06:20 97 10/13/23 05:54 99 10/13/23 05:45 127 H 22 117/98 99 Results - Labs Lab/Micro Results: Lab Results-Last 24 Hours 10/13/23 10/13/23 10/13/23 Range/Units 05:54 06:05 06:05 WBC 10.1 H (4.23-9.07) x10^3/uL RBC 4.44 L (4.63-6.08) x10^6/uL Hgb 13.6 L (13.7-17.5) g/dL Hct 43.9 (40.1-51.0) % MCV 98.9 H (79.0-92.2) fL MCH 30.6 (25.7-32.2) pg MCHC 31.0 L (32.3-36.5) g/dL RDW 13.2 (11.6-14.4) % Plt Count 316 (163-337) x10^3/uL MPV 9.8 (9.4-12.4) fL Gran % 77.6 H (34.0-67.9) % Immature Gran % (Auto) 0.6 H (0.001-0.429) % Nucleat RBC Rel Count 0.0 (0.00-0.2) % Eos # (Auto) 0.05 (0.04-0.54) x10^3/uL Immature Gran # (Auto) 0.06 H (0.001-0.031) x10^3u/L Absolute Lymphs (auto) 1.34 (1.32-3.57) x10^3/uL Absolute Monos (auto) 0.79 (0.30-0.82) x10^3/uL Absolute Nucleated RBC 0.00 (0.00-0.012) x10^3u/L Lymphocytes % 13.3 L (21.8-53.1) % Monocytes % 7.8 (5.3-12.2) % Eosinophils % 0.5 L (0.8-7.0) % Basophils % 0.2 (0.2-1.2) % Absolute Granulocytes 7.81 H (1.78-5.38) x10^3/uL Basophils # 0.02 (0.01-0.08) x10^3/uL Sodium 136 (135-145) mmol/L Potassium 3.3 L (3.5-5.1) mmol/L Chloride 105 (98-107) mmol/L Carbon Dioxide 10 L* (22-30) mmol/L Anion Gap 24.0 H (5-15) MEQ/L BUN 22 H (9-20) mg/dL Creatinine 0.85 (0.66-1.25) mg/dL Estimated GFR 96.4 ML/MIN Glucose 158 H (74-106) mg/dL POC Glucometer (74 to 106) mg/dL Lactic Acid 16.5 H (0.4-2.0) Calcium 9.8 (8.4-10.2) mg/dL Magnesium (1.6-2.3) mg/dL Total Bilirubin 0.50 (0.2-1.3) mg/dL AST 25 (17-59) U/L ALT 27 (0-50) U/L Alkaline Phosphatase 70 (38-126) U/L Ammonia (9-30) umol/L Creatine Kinase (55-170) U/L Serum Total Protein 7.7 (6.3-8.2) g/dL Albumin 4.4 (3.5-5.0) g/dL Vitamin B12 (239-931) pg/mL Procalcitonin (0.030-0.080) ng/mL TSH 3rd Generation (0.470-4.680) mIU/L Urine Color (Yellow) Urine Appearance (Clear) Urine pH (4.6-8.0) Ur Specific [place] (1.005-1.030) Urine Protein (Negative) Urine Glucose (UA) (Negative) mg/dL Urine Ketones (Negative) Urine Blood (Negative) Urine Nitrite (Negative) Urine Bilirubin (Negative) Urine Urobilinogen (0.2) mg/dL Ur Leukocyte Esterase (Negative) U Hyaline Cast (Auto) (0-2) /LPF Urine Microscopic RBC (0-5) /HPF Urine Microscopic WBC (0-5) /HPF Ur Epithelial Cells (None Seen) /HPF Urine Bacteria (None Seen) /HPF Urine Culture Reflexed (NO) Salicylates < 1.0 L (2-20) mg/dL Urine Opiates Level (NEGATIVE) Ur Methadone (NEGATIVE) Acetaminophen < 10 L (10-30) ug/ml Urine Barbiturates (NEGATIVE) Ur Phencyclidine (PCP) (NEGATIVE) Urine Amphetamine (NEGATIVE) U Benzodiazepine Level (NEGATIVE) Urine Cocaine (NEGATIVE) Urine Marijuana (THC) (NEGATIVE) Ethyl Alcohol < 10 (0-10) mg/dL 10/13/23 10/13/23 10/13/23 Range/Units 06:05 08:08 08:15 WBC (4.23-9.07) x10^3/uL RBC (4.63-6.08) x10^6/uL Hgb (13.7-17.5) g/dL Hct (40.1-51.0) % MCV (79.0-92.2) fL MCH (25.7-32.2) pg MCHC (32.3-36.5) g/dL RDW (11.6-14.4) % Plt Count (163-337) x10^3/uL MPV (9.4-12.4) fL Gran % (34.0-67.9) % Immature Gran % (Auto) (0.001-0.429) % Nucleat RBC Rel Count (0.00-0.2) % Eos # (Auto) (0.04-0.54) x10^3/uL Immature Gran # (Auto) (0.001-0.031) x10^3u/L Absolute Lymphs (auto) (1.32-3.57) x10^3/uL Absolute Monos (auto) (0.30-0.82) x10^3/uL Absolute Nucleated RBC (0.00-0.012) x10^3u/L Lymphocytes % (21.8-53.1) % Monocytes % (5.3-12.2) % Eosinophils % (0.8-7.0) % Basophils % (0.2-1.2) % Absolute Granulocytes (1.78-5.38) x10^3/uL Basophils # (0.01-0.08) x10^3/uL Sodium (135-145) mmol/L Potassium (3.5-5.1) mmol/L Chloride (98-107) mmol/L Carbon Dioxide (22-30) mmol/L Anion Gap (5-15) MEQ/L BUN (9-20) mg/dL Creatinine (0.66-1.25) mg/dL Estimated GFR ML/MIN Glucose (74-106) mg/dL POC Glucometer (74 to 106) mg/dL Lactic Acid 1.1 (0.4-2.0) Calcium (8.4-10.2) mg/dL Magnesium (1.6-2.3) mg/dL Total Bilirubin (0.2-1.3) mg/dL AST (17-59) U/L ALT (0-50) U/L Alkaline Phosphatase (38-126) U/L Ammonia < 9 L (9-30) umol/L Creatine Kinase (55-170) U/L Serum Total Protein (6.3-8.2) g/dL Albumin (3.5-5.0) g/dL Vitamin B12 (239-931) pg/mL Procalcitonin (0.030-0.080) ng/mL TSH 3rd Generation (0.470-4.680) mIU/L Urine Color (Yellow) Urine Appearance (Clear) Urine pH (4.6-8.0) Ur Specific [place] (1.005-1.030) Urine Protein (Negative) Urine Glucose (UA) (Negative) mg/dL Urine Ketones (Negative) Urine Blood (Negative) Urine Nitrite (Negative) Urine Bilirubin (Negative) Urine Urobilinogen (0.2) mg/dL Ur Leukocyte Esterase (Negative) U Hyaline Cast (Auto) (0-2) /LPF Urine Microscopic RBC (0-5) /HPF Urine Microscopic WBC (0-5) /HPF Ur Epithelial Cells (None Seen) /HPF Urine Bacteria (None Seen) /HPF Urine Culture Reflexed (NO) Salicylates (2-20) mg/dL Urine Opiates Level NEGATIVE (NEGATIVE) Ur Methadone NEGATIVE (NEGATIVE) Acetaminophen (10-30) ug/ml Urine Barbiturates NEGATIVE (NEGATIVE) Ur Phencyclidine (PCP) NEGATIVE (NEGATIVE) Urine Amphetamine NEGATIVE (NEGATIVE) U Benzodiazepine Level NEGATIVE (NEGATIVE) Urine Cocaine NEGATIVE (NEGATIVE) Urine Marijuana (THC) NEGATIVE (NEGATIVE) Ethyl Alcohol (0-10) mg/dL 10/13/23 10/13/23 10/13/23 Range/Units 08:25 09:15 09:15 WBC (4.23-9.07) x10^3/uL RBC (4.63-6.08) x10^6/uL Hgb (13.7-17.5) g/dL Hct (40.1-51.0) % MCV (79.0-92.2) fL MCH (25.7-32.2) pg MCHC (32.3-36.5) g/dL RDW (11.6-14.4) % Plt Count (163-337) x10^3/uL MPV (9.4-12.4) fL Gran % (34.0-67.9) % Immature Gran % (Auto) (0.001-0.429) % Nucleat RBC Rel Count (0.00-0.2) % Eos # (Auto) (0.04-0.54) x10^3/uL Immature Gran # (Auto) (0.001-0.031) x10^3u/L Absolute Lymphs (auto) (1.32-3.57) x10^3/uL Absolute Monos (auto) (0.30-0.82) x10^3/uL Absolute Nucleated RBC (0.00-0.012) x10^3u/L Lymphocytes % (21.8-53.1) % Monocytes % (5.3-12.2) % Eosinophils % (0.8-7.0) % Basophils % (0.2-1.2) % Absolute Granulocytes (1.78-5.38) x10^3/uL Basophils # (0.01-0.08) x10^3/uL Sodium 139 (135-145) mmol/L Potassium 3.5 (3.5-5.1) mmol/L Chloride 108 H (98-107) mmol/L Carbon Dioxide 24 (22-30) mmol/L Anion Gap 10.8 (5-15) MEQ/L BUN 19 (9-20) mg/dL Creatinine 0.70 (0.66-1.25) mg/dL Estimated GFR 102.3 ML/MIN Glucose 107 H (74-106) mg/dL POC Glucometer (74 to 106) mg/dL Lactic Acid (0.4-2.0) Calcium 8.6 (8.4-10.2) mg/dL Magnesium (1.6-2.3) mg/dL Total Bilirubin (0.2-1.3) mg/dL AST (17-59) U/L ALT (0-50) U/L Alkaline Phosphatase (38-126) U/L Ammonia (9-30) umol/L Creatine Kinase (55-170) U/L Serum Total Protein (6.3-8.2) g/dL Albumin (3.5-5.0) g/dL Vitamin B12 (239-931) pg/mL Procalcitonin 0.055 (0.030-0.080) ng/mL TSH 3rd Generation (0.470-4.680) mIU/L Urine Color Yellow (Yellow) Urine Appearance Clear (Clear) Urine pH 6.5 (4.6-8.0) Ur Specific [place] <=1.005 (1.005-1.030) Urine Protein Negative (Negative) Urine Glucose (UA) Negative (Negative) mg/dL Urine Ketones Negative (Negative) Urine Blood Negative (Negative) Urine Nitrite Negative (Negative) Urine Bilirubin Negative (Negative) Urine Urobilinogen 0.2 (0.2) mg/dL Ur Leukocyte Esterase Negative (Negative) U Hyaline Cast (Auto) NONE SEEN (0-2) /LPF Urine Microscopic RBC 0-2 (0-5) /HPF Urine Microscopic WBC 0-2 (0-5) /HPF Ur Epithelial Cells None Seen (None Seen) /HPF Urine Bacteria None Seen (None Seen) /HPF Urine Culture Reflexed NO (NO) Salicylates (2-20) mg/dL Urine Opiates Level (NEGATIVE) Ur Methadone (NEGATIVE) Acetaminophen (10-30) ug/ml Urine Barbiturates (NEGATIVE) Ur Phencyclidine (PCP) (NEGATIVE) Urine Amphetamine (NEGATIVE) U Benzodiazepine Level (NEGATIVE) Urine Cocaine (NEGATIVE) Urine Marijuana (THC) (NEGATIVE) Ethyl Alcohol (0-10) mg/dL 10/13/23 10/13/23 Range/Units 13:04 14:44 WBC (4.23-9.07) x10^3/uL RBC (4.63-6.08) x10^6/uL Hgb (13.7-17.5) g/dL Hct (40.1-51.0) % MCV (79.0-92.2) fL MCH (25.7-32.2) pg MCHC (32.3-36.5) g/dL RDW (11.6-14.4) % Plt Count (163-337) x10^3/uL MPV (9.4-12.4) fL Gran % (34.0-67.9) % Immature Gran % (Auto) (0.001-0.429) % Nucleat RBC Rel Count (0.00-0.2) % Eos # (Auto) (0.04-0.54) x10^3/uL Immature Gran # (Auto) (0.001-0.031) x10^3u/L Absolute Lymphs (auto) (1.32-3.57) x10^3/uL Absolute Monos (auto) (0.30-0.82) x10^3/uL Absolute Nucleated RBC (0.00-0.012) x10^3u/L Lymphocytes % (21.8-53.1) % Monocytes % (5.3-12.2) % Eosinophils % (0.8-7.0) % Basophils % (0.2-1.2) % Absolute Granulocytes (1.78-5.38) x10^3/uL Basophils # (0.01-0.08) x10^3/uL Sodium (135-145) mmol/L Potassium (3.5-5.1) mmol/L Chloride (98-107) mmol/L Carbon Dioxide (22-30) mmol/L Anion Gap (5-15) MEQ/L BUN (9-20) mg/dL Creatinine (0.66-1.25) mg/dL Estimated GFR ML/MIN Glucose (74-106) mg/dL POC Glucometer 88 (74 to 106) mg/dL Lactic Acid (0.4-2.0) Calcium (8.4-10.2) mg/dL Magnesium 2.1 (1.6-2.3) mg/dL Total Bilirubin (0.2-1.3) mg/dL AST (17-59) U/L ALT (0-50) U/L Alkaline Phosphatase (38-126) U/L Ammonia (9-30) umol/L Creatine Kinase 107 (55-170) U/L Serum Total Protein (6.3-8.2) g/dL Albumin (3.5-5.0) g/dL Vitamin B12 344 (239-931) pg/mL Procalcitonin (0.030-0.080) ng/mL TSH 3rd Generation 1.923 (0.470-4.680) mIU/L Urine Color (Yellow) Urine Appearance (Clear) Urine pH (4.6-8.0) Ur Specific [place] (1.005-1.030) Urine Protein (Negative) Urine Glucose (UA) (Negative) mg/dL Urine Ketones (Negative) Urine Blood (Negative) Urine Nitrite (Negative) Urine Bilirubin (Negative) Urine Urobilinogen (0.2) mg/dL Ur Leukocyte Esterase (Negative) U Hyaline Cast (Auto) (0-2) /LPF Urine Microscopic RBC (0-5) /HPF Urine Microscopic WBC (0-5) /HPF Ur Epithelial Cells (None Seen) /HPF Urine Bacteria (None Seen) /HPF Urine Culture Reflexed (NO) Salicylates (2-20) mg/dL Urine Opiates Level (NEGATIVE) Ur Methadone (NEGATIVE) Acetaminophen (10-30) ug/ml Urine Barbiturates (NEGATIVE) Ur Phencyclidine (PCP) (NEGATIVE) Urine Amphetamine (NEGATIVE) U Benzodiazepine Level (NEGATIVE) Urine Cocaine (NEGATIVE) Urine Marijuana (THC) (NEGATIVE) Ethyl Alcohol (0-10) mg/dL Accuchecks Date 10/13/23 Date 10/13/23 Time 14:46 Time 08:26 - Radiology Impressions Radiology Exams & Impressions: Radiology Procedures Category Date Time Status CHEST 1 VIEW (PORTABLE) Stat Exams 10/13/23 07:54 Completed HEAD WITHOUT CONTRAST [CT] Stat Exams 10/13/23 05:55 Completed NECK WITH CONTRAST [CT] Stat Exams 10/13/23 12:59 Completed MARLYS Encounter - MARLYS Encounter Attestation MARLYS Encounter Attestation: "IhavepersonallyseenandROMARIO Garrison andhavediscussed pertinent aspects of their care with Qiana Higgins agree with the history, physical exam (any modifications based on my personal exam will be noted below), assessment, and plan as outlined in original note. Please see immediately below for my summary of findings and additional assessment and plan along with any meaningful corrections/explanations to the Subjective/Objective portions of the MARLYS note will be noted." My portion of the encounter took place via telemedicine. -Patient admitted for altered mental status, found by police [place] a gas station. Has a seizure prior to coming to the ER. He is very tangential, difficult to redirect. Does not give clear answers to any questions. Says he was taking his meds. Neck mass is known to him and he was supposed to follow up with a surgeon. Will get medical records [facility] as patient says he was recently there.
[2023-10-13] MEDS ORDERED: Zofran 4 MG/2 ML VIAL IV PRN (13:07)
[2023-10-13] MEDS ORDERED: Ativan 2 MG/1 ML VIAL IV PRN ×3 (13:23→19:46)
--- NOTE | 2023-10-13 14:52 | XRAY ---
Indication: Left neck mass. Multiple contiguous axial images obtained through the neck using 80 cc Isovue 370 contrast. Cutaneous BB placed over region of interest. Comparison: None Bilateral upper and lower dental amalgams produces beam artifact. Left neck cutaneous BB is inferior to the ear where there is underlying bulky enhancing lobular soft tissue mass deep to sternocleidomastoid muscle measuring at least 6.4 x 5.1 x 7.1 cm, probable lymphadenopathy. Soft tissue mass also demonstrates multiple pockets of fluid, probable necrosis. Smaller 3.0 x 1.8 x 2.8 cm left supraclavicular lymphadenopathy. Smaller right cervical enlarged lymph nodes, largest 2.0 x 1.4 cm. Base of tongue demonstrates lobular left soft tissue mass measuring at least 3.0 x 3.2 in greatest axial dimension worrisome for malignancy. Remaining supra and infraglottic airway widely patent. Normal epiglottis and normal vocal cords. Thyroid gland enhances homogeneously. Both parotid and right submandibular glands are unremarkable. Left submandibular gland not seen. Major arteries and veins are normal in course and caliber with minimal bilateral internal carotid calcifications. Osseous structures intact with osteopenia, minimal/mild C3-T1 degenerative changes, and C5-C6 fusion hardware. No suspicious bony lesions. Base of brain and lung apices are unremarkable. Impression: 1. Soft tissue mass bases of left tongue as detailed worrisome for malignancy. Direct laryngoscopic evaluation recommended. 2. Bulky left cervical and smaller left supraclavicular necrotic lymphadenopathy. Given the above soft tissue mass, metastasis is of primary concern. 3. Incidental chronic bony findings and minimal bilateral carotid calcifications.
[2023-10-13] MEDS: Sodium Chloride 0.9% 1000 ML 1,000 ML IV SCH (14:54)
[2023-10-13 17:59] LABS: TSH, 3RD Generation 1.923 mIU/L (0.470-4.680)
[2023-10-13 18:40] LABS: MAGNESIUM 2.1 mg/dL (1.6-2.3)
[2023-10-13] MEDS ORDERED: Ativan 2 MG/1 ML VIAL IM PRN (20:06)
[2023-10-13] MEDS: TYLENOL 325 MG PO PRN (20:45)
[2023-10-13] MEDS: Seroquel 25 MG PO SCH (21:19)
[2023-10-13] MEDS: KEPPRA PO SCH (21:19)
--- NOTE | 2023-10-14 05:30 | PCM.NOTE ---
Date and Time: 10/14/23529 Subjective Assessment: is a 63 year old male who was brought in per ER documentation by law enforcement for evaluation after finding him [place] the highway in what appeared to be a "manic state" with associated confusion. Patient is now A&O to self,place, and time but unable to provide medical history other than that he has a h/o seizures and is on Keppra/Alprazolam at home. He is not able to appropriately answer questions. He does endorse left neck/ear pain that he thinks has been there for about a week. On exam this is a hard approximately 13 cm x13.5 cm inch mass that extends from the left mastoid to mid mandible and neck. Neuro exam negative. In ED, vitals stable. EKG NS with no ST elevations/deviations. CT head with no acute findings. CXR with no acute findings. Lab findings remarkable for mild leukocytosis with wbc at 10.1, macrocytic anemia with hgb at 13.6, lactic acid initially elevated at 16.5, now wnl at 1.1. Of note urine drug screen/alcohol negative. Objective Data Vital Signs: Vital Signs - 24 hr Temp Pulse Resp BP BP Pulse Ox 10/14/23 00:00 97.4 F 85 16 157/85 92 L 10/13/23 16:00 98.8 F 71 17 143/77 97 10/13/23 13:07 86 16 98 10/13/23 11:58 98.3 F 88 17 144/87 98 10/13/23 10:33 98.3 F 88 17 144/87 98 10/13/23 10:00 87 17 139/94 98 10/13/23 09:30 88 24 135/97 10/13/23 09:02 89 16 151/69 96 10/13/23 08:34 90 25 H 120/76 96 10/13/23 08:00 134/89 96 10/13/23 07:32 94 H 19 161/94 98 10/13/23 07:00 99 H 26 H 134/90 10/13/23 06:51 100 H 16 121/92 96 10/13/23 06:30 112 H 18 133/90 97 10/13/23 06:20 97 10/13/23 05:54 99 10/13/23 05:45 127 H 22 117/98 99 Pain Assessment - Last Documented Pain Intensity 0 Pain Scale Used 0-10 Pain Scale Intake and Output: Intake & Output 10/11/23 10/12/23 10/13/23 10/14/23 11:59 11:59 11:59 11:59 Intake Total 626 Balance 626 Weight 79.8 kg Lab Results: Lab Results-Last 24 Hours 10/13/23 10/13/23 10/13/23 Range/Units 05:54 06:05 06:05 WBC 10.1 H (4.23-9.07) x10^3/uL RBC 4.44 L (4.63-6.08) x10^6/uL Hgb 13.6 L (13.7-17.5) g/dL Hct 43.9 (40.1-51.0) % MCV 98.9 H (79.0-92.2) fL MCH 30.6 (25.7-32.2) pg MCHC 31.0 L (32.3-36.5) g/dL RDW 13.2 (11.6-14.4) % Plt Count 316 (163-337) x10^3/uL MPV 9.8 (9.4-12.4) fL Gran % 77.6 H (34.0-67.9) % Immature Gran % (Auto) 0.6 H (0.001-0.429) % Nucleat RBC Rel Count 0.0 (0.00-0.2) % Eos # (Auto) 0.05 (0.04-0.54) x10^3/uL Immature Gran # (Auto) 0.06 H (0.001-0.031) x10^3u/L Absolute Lymphs (auto) 1.34 (1.32-3.57) x10^3/uL Absolute Monos (auto) 0.79 (0.30-0.82) x10^3/uL Absolute Nucleated RBC 0.00 (0.00-0.012) x10^3u/L Lymphocytes % 13.3 L (21.8-53.1) % Monocytes % 7.8 (5.3-12.2) % Eosinophils % 0.5 L (0.8-7.0) % Basophils % 0.2 (0.2-1.2) % Absolute Granulocytes 7.81 H (1.78-5.38) x10^3/uL Basophils # 0.02 (0.01-0.08) x10^3/uL Sodium 136 (135-145) mmol/L Potassium 3.3 L (3.5-5.1) mmol/L Chloride 105 (98-107) mmol/L Carbon Dioxide 10 L* (22-30) mmol/L Anion Gap 24.0 H (5-15) MEQ/L BUN 22 H (9-20) mg/dL Creatinine 0.85 (0.66-1.25) mg/dL Estimated GFR 96.4 ML/MIN Glucose 158 H (74-106) mg/dL POC Glucometer (74 to 106) mg/dL Lactic Acid 16.5 H (0.4-2.0) Calcium 9.8 (8.4-10.2) mg/dL Magnesium (1.6-2.3) mg/dL Total Bilirubin 0.50 (0.2-1.3) mg/dL AST 25 (17-59) U/L ALT 27 (0-50) U/L Alkaline Phosphatase 70 (38-126) U/L Ammonia (9-30) umol/L Creatine Kinase (55-170) U/L Serum Total Protein 7.7 (6.3-8.2) g/dL Albumin 4.4 (3.5-5.0) g/dL Vitamin B12 (239-931) pg/mL Procalcitonin (0.030-0.080) ng/mL TSH 3rd Generation (0.470-4.680) mIU/L Urine Color (Yellow) Urine Appearance (Clear) Urine pH (4.6-8.0) Ur Specific [place] (1.005-1.030) Urine Protein (Negative) Urine Glucose (UA) (Negative) mg/dL Urine Ketones (Negative) Urine Blood (Negative) Urine Nitrite (Negative) Urine Bilirubin (Negative) Urine Urobilinogen (0.2) mg/dL Ur Leukocyte Esterase (Negative) U Hyaline Cast (Auto) (0-2) /LPF Urine Microscopic RBC (0-5) /HPF Urine Microscopic WBC (0-5) /HPF Ur Epithelial Cells (None Seen) /HPF Urine Bacteria (None Seen) /HPF Urine Culture Reflexed (NO) Salicylates < 1.0 L (2-20) mg/dL Urine Opiates Level (NEGATIVE) Ur Methadone (NEGATIVE) Acetaminophen < 10 L (10-30) ug/ml Urine Barbiturates (NEGATIVE) Ur Phencyclidine (PCP) (NEGATIVE) Urine Amphetamine (NEGATIVE) U Benzodiazepine Level (NEGATIVE) Urine Cocaine (NEGATIVE) Urine Marijuana (THC) (NEGATIVE) Ethyl Alcohol < 10 (0-10) mg/dL 10/13/23 10/13/23 10/13/23 Range/Units 06:05 08:08 08:15 WBC (4.23-9.07) x10^3/uL RBC (4.63-6.08) x10^6/uL Hgb (13.7-17.5) g/dL Hct (40.1-51.0) % MCV (79.0-92.2) fL MCH (25.7-32.2) pg MCHC (32.3-36.5) g/dL RDW (11.6-14.4) % Plt Count (163-337) x10^3/uL MPV (9.4-12.4) fL Gran % (34.0-67.9) % Immature Gran % (Auto) (0.001-0.429) % Nucleat RBC Rel Count (0.00-0.2) % Eos # (Auto) (0.04-0.54) x10^3/uL Immature Gran # (Auto) (0.001-0.031) x10^3u/L Absolute Lymphs (auto) (1.32-3.57) x10^3/uL Absolute Monos (auto) (0.30-0.82) x10^3/uL Absolute Nucleated RBC (0.00-0.012) x10^3u/L Lymphocytes % (21.8-53.1) % Monocytes % (5.3-12.2) % Eosinophils % (0.8-7.0) % Basophils % (0.2-1.2) % Absolute Granulocytes (1.78-5.38) x10^3/uL Basophils # (0.01-0.08) x10^3/uL Sodium (135-145) mmol/L Potassium (3.5-5.1) mmol/L Chloride (98-107) mmol/L Carbon Dioxide (22-30) mmol/L Anion Gap (5-15) MEQ/L BUN (9-20) mg/dL Creatinine (0.66-1.25) mg/dL Estimated GFR ML/MIN Glucose (74-106) mg/dL POC Glucometer (74 to 106) mg/dL Lactic Acid 1.1 (0.4-2.0) Calcium (8.4-10.2) mg/dL Magnesium (1.6-2.3) mg/dL Total Bilirubin (0.2-1.3) mg/dL AST (17-59) U/L ALT (0-50) U/L Alkaline Phosphatase (38-126) U/L Ammonia < 9 L (9-30) umol/L Creatine Kinase (55-170) U/L Serum Total Protein (6.3-8.2) g/dL Albumin (3.5-5.0) g/dL Vitamin B12 (239-931) pg/mL Procalcitonin (0.030-0.080) ng/mL TSH 3rd Generation (0.470-4.680) mIU/L Urine Color (Yellow) Urine Appearance (Clear) Urine pH (4.6-8.0) Ur Specific [place] (1.005-1.030) Urine Protein (Negative) Urine Glucose (UA) (Negative) mg/dL Urine Ketones (Negative) Urine Blood (Negative) Urine Nitrite (Negative) Urine Bilirubin (Negative) Urine Urobilinogen (0.2) mg/dL Ur Leukocyte Esterase (Negative) U Hyaline Cast (Auto) (0-2) /LPF Urine Microscopic RBC (0-5) /HPF Urine Microscopic WBC (0-5) /HPF Ur Epithelial Cells (None Seen) /HPF Urine Bacteria (None Seen) /HPF Urine Culture Reflexed (NO) Salicylates (2-20) mg/dL Urine Opiates Level NEGATIVE (NEGATIVE) Ur Methadone NEGATIVE (NEGATIVE) Acetaminophen (10-30) ug/ml Urine Barbiturates NEGATIVE (NEGATIVE) Ur Phencyclidine (PCP) NEGATIVE (NEGATIVE) Urine Amphetamine NEGATIVE (NEGATIVE) U Benzodiazepine Level NEGATIVE (NEGATIVE) Urine Cocaine NEGATIVE (NEGATIVE) Urine Marijuana (THC) NEGATIVE (NEGATIVE) Ethyl Alcohol (0-10) mg/dL 10/13/23 10/13/23 10/13/23 Range/Units 08:25 09:15 09:15 WBC (4.23-9.07) x10^3/uL RBC (4.63-6.08) x10^6/uL Hgb (13.7-17.5) g/dL Hct (40.1-51.0) % MCV (79.0-92.2) fL MCH (25.7-32.2) pg MCHC (32.3-36.5) g/dL RDW (11.6-14.4) % Plt Count (163-337) x10^3/uL MPV (9.4-12.4) fL Gran % (34.0-67.9) % Immature Gran % (Auto) (0.001-0.429) % Nucleat RBC Rel Count (0.00-0.2) % Eos # (Auto) (0.04-0.54) x10^3/uL Immature Gran # (Auto) (0.001-0.031) x10^3u/L Absolute Lymphs (auto) (1.32-3.57) x10^3/uL Absolute Monos (auto) (0.30-0.82) x10^3/uL Absolute Nucleated RBC (0.00-0.012) x10^3u/L Lymphocytes % (21.8-53.1) % Monocytes % (5.3-12.2) % Eosinophils % (0.8-7.0) % Basophils % (0.2-1.2) % Absolute Granulocytes (1.78-5.38) x10^3/uL Basophils # (0.01-0.08) x10^3/uL Sodium 139 (135-145) mmol/L Potassium 3.5 (3.5-5.1) mmol/L Chloride 108 H (98-107) mmol/L Carbon Dioxide 24 (22-30) mmol/L Anion Gap 10.8 (5-15) MEQ/L BUN 19 (9-20) mg/dL Creatinine 0.70 (0.66-1.25) mg/dL Estimated GFR 102.3 ML/MIN Glucose 107 H (74-106) mg/dL POC Glucometer (74 to 106) mg/dL Lactic Acid (0.4-2.0) Calcium 8.6 (8.4-10.2) mg/dL Magnesium (1.6-2.3) mg/dL Total Bilirubin (0.2-1.3) mg/dL AST (17-59) U/L ALT (0-50) U/L Alkaline Phosphatase (38-126) U/L Ammonia (9-30) umol/L Creatine Kinase (55-170) U/L Serum Total Protein (6.3-8.2) g/dL Albumin (3.5-5.0) g/dL Vitamin B12 (239-931) pg/mL Procalcitonin 0.055 (0.030-0.080) ng/mL TSH 3rd Generation (0.470-4.680) mIU/L Urine Color Yellow (Yellow) Urine Appearance Clear (Clear) Urine pH 6.5 (4.6-8.0) Ur Specific [place] <=1.005 (1.005-1.030) Urine Protein Negative (Negative) Urine Glucose (UA) Negative (Negative) mg/dL Urine Ketones Negative (Negative) Urine Blood Negative (Negative) Urine Nitrite Negative (Negative) Urine Bilirubin Negative (Negative) Urine Urobilinogen 0.2 (0.2) mg/dL Ur Leukocyte Esterase Negative (Negative) U Hyaline Cast (Auto) NONE SEEN (0-2) /LPF Urine Microscopic RBC 0-2 (0-5) /HPF Urine Microscopic WBC 0-2 (0-5) /HPF Ur Epithelial Cells None Seen (None Seen) /HPF Urine Bacteria None Seen (None Seen) /HPF Urine Culture Reflexed NO (NO) Salicylates (2-20) mg/dL Urine Opiates Level (NEGATIVE) Ur Methadone (NEGATIVE) Acetaminophen (10-30) ug/ml Urine Barbiturates (NEGATIVE) Ur Phencyclidine (PCP) (NEGATIVE) Urine Amphetamine (NEGATIVE) U Benzodiazepine Level (NEGATIVE) Urine Cocaine (NEGATIVE) Urine Marijuana (THC) (NEGATIVE) Ethyl Alcohol (0-10) mg/dL 10/13/23 10/13/23 Range/Units 13:04 14:44 WBC (4.23-9.07) x10^3/uL RBC (4.63-6.08) x10^6/uL Hgb (13.7-17.5) g/dL Hct (40.1-51.0) % MCV (79.0-92.2) fL MCH (25.7-32.2) pg MCHC (32.3-36.5) g/dL RDW (11.6-14.4) % Plt Count (163-337) x10^3/uL MPV (9.4-12.4) fL Gran % (34.0-67.9) % Immature Gran % (Auto) (0.001-0.429) % Nucleat RBC Rel Count (0.00-0.2) % Eos # (Auto) (0.04-0.54) x10^3/uL Immature Gran # (Auto) (0.001-0.031) x10^3u/L Absolute Lymphs (auto) (1.32-3.57) x10^3/uL Absolute Monos (auto) (0.30-0.82) x10^3/uL Absolute Nucleated RBC (0.00-0.012) x10^3u/L Lymphocytes % (21.8-53.1) % Monocytes % (5.3-12.2) % Eosinophils % (0.8-7.0) % Basophils % (0.2-1.2) % Absolute Granulocytes (1.78-5.38) x10^3/uL Basophils # (0.01-0.08) x10^3/uL Sodium (135-145) mmol/L Potassium (3.5-5.1) mmol/L Chloride (98-107) mmol/L Carbon Dioxide (22-30) mmol/L Anion Gap (5-15) MEQ/L BUN (9-20) mg/dL Creatinine (0.66-1.25) mg/dL Estimated GFR ML/MIN Glucose (74-106) mg/dL POC Glucometer 88 (74 to 106) mg/dL Lactic Acid (0.4-2.0) Calcium (8.4-10.2) mg/dL Magnesium 2.1 (1.6-2.3) mg/dL Total Bilirubin (0.2-1.3) mg/dL AST (17-59) U/L ALT (0-50) U/L Alkaline Phosphatase (38-126) U/L Ammonia (9-30) umol/L Creatine Kinase 107 (55-170) U/L Serum Total Protein (6.3-8.2) g/dL Albumin (3.5-5.0) g/dL Vitamin B12 344 (239-931) pg/mL Procalcitonin (0.030-0.080) ng/mL TSH 3rd Generation 1.923 (0.470-4.680) mIU/L Urine Color (Yellow) Urine Appearance (Clear) Urine pH (4.6-8.0) Ur Specific [place] (1.005-1.030) Urine Protein (Negative) Urine Glucose (UA) (Negative) mg/dL Urine Ketones (Negative) Urine Blood (Negative) Urine Nitrite (Negative) Urine Bilirubin (Negative) Urine Urobilinogen (0.2) mg/dL Ur Leukocyte Esterase (Negative) U Hyaline Cast (Auto) (0-2) /LPF Urine Microscopic RBC (0-5) /HPF Urine Microscopic WBC (0-5) /HPF Ur Epithelial Cells (None Seen) /HPF Urine Bacteria (None Seen) /HPF Urine Culture Reflexed (NO) Salicylates (2-20) mg/dL Urine Opiates Level (NEGATIVE) Ur Methadone (NEGATIVE) Acetaminophen (10-30) ug/ml Urine Barbiturates (NEGATIVE) Ur Phencyclidine (PCP) (NEGATIVE) Urine Amphetamine (NEGATIVE) U Benzodiazepine Level (NEGATIVE) Urine Cocaine (NEGATIVE) Urine Marijuana (THC) (NEGATIVE) Ethyl Alcohol (0-10) mg/dL Radiology Exams: Radiology Procedures Category Date Time Status CHEST 1 VIEW (PORTABLE) Stat Exams 10/13/23 07:54 Completed HEAD WITHOUT CONTRAST [CT] Stat Exams 10/13/23 05:55 Completed NECK WITH CONTRAST [CT] Stat Exams 10/13/23 12:59 Completed Assessment/Plan (1) Encephalopathy Current Visit: Yes Status: Acute Assessment & Plan: -Head CT with no acute findings/ ? if seizure related -CXR/UA/UDS unremarkable -EKG NS with no ST elevation/deviations -NPO until swallow study -ammonia level WNL -IVF -TSH, B12 -Bcult pending -avoid narcotics -ativan prn for severe agitation -CIWA protocol ? withdrawal -orientation protocol Code(s): G93.40 - ENCEPHALOPATHY, UNSPECIFIED (2) History of seizure disorder Current Visit: Yes Status: Acute Assessment & Plan: -continue home keppra/ativa -seizure precautions -ativan prn for seizure activity -neuro checks -supplemental oxygen PRN -ABG if significant lethargy/hypoxia Code(s): Z86.69 - PERSONAL HISTORY OF DIS OF THE NERVOUS SYS AND SENSE ORGANS (3) Leukocytosis Current Visit: Yes Status: Acute Assessment & Plan: -mild -UA negative -CXR negative -bcult pending -CT neck ordered for palpable mass to left neck -afebrile Code(s): D72.829 - ELEVATED WHITE BLOOD CELL COUNT, UNSPECIFIED (4) Mass of left side of neck Current Visit: Yes Status: Acute Assessment & Plan: -Patient states this has been there for about a week - patient not reliable historian -CT neck w/ co for evaluation VTE: Bilateral SCD PPI: Protonix Dispo 1-2 days Code: Full Code(s): G93.40 - ENCEPHALOPATHY, UNSPECIFIED (2) History of seizure disorder Current Visit: Yes Status: Acute Code(s): Z86.69 - PERSONAL HISTORY OF DIS OF THE NERVOUS SYS AND SENSE ORGANS (3) Leukocytosis Current Visit: Yes Status: Acute Code(s): D72.829 - ELEVATED WHITE BLOOD CELL COUNT, UNSPECIFIED (4) Mass of left side of neck Current Visit: Yes Status: Acute Code(s): R22.1 - LOCALIZED SWELLING, MASS AND LUMP, NECK
[2023-10-14] MEDS: Zyprexa Zydis 5 MG PO STA (07:23)
[2023-10-14] MEDS: Zyprexa Zydis 5 MG PO PRN (09:43)
[2023-10-14] MEDS ORDERED: FOLATE 1 MG PO SCH (10:00)
[2023-10-14] MEDS ORDERED: THERAGRAN MULTIVITAMIN PO SCH (10:00)
[2023-10-14] MEDS ORDERED: VITAMIN B-1 100 MG PO SCH (10:00)
[2023-10-14] MEDS: APRESOLINE 20 MG/ML INJ IV PRN (12:17)
[2023-10-14 12:49] VITALS: BP 172/101; TEMP 98.9; O2SAT 98
[2023-10-14] MEDS: Ativan 2 MG/1 ML VIAL IV PRN (14:25)
[2023-10-14 14:27] VITALS: PULSE 143; RESP 24
--- NOTE | 2023-10-14 14:59 | PCM.DS ---
Discharge Summary Date of Admission: 10/13/23 10:31 Date of Discharge: 10/14/23 Admitting Physician: WESTON APDILLA MD Consults: Consults on Case 10/14/23 09:18 Consult,[place] [Psychiatric Consult] STAT Primary Care Provider: NO FAMILY DOCTOR Allergies Allergies No Known Drug Allergies Allergy (Unverified 10/13/23 06:16) pt states no allergies Hospital Summary - Hospital Course Hospital Course: is a 63 year old male who was brought in per ER documentation by law enforcement for evaluation [place] finding [place] the [place] in what appeared to be a "manic state" with associated confusion. Patient is now A&O to self,place, and time but unable to provide medical history other than that he has a h/o seizures and is on Keppra/Alprazolam at home. He is not able to appropriately a nswer questions. He does endorse left neck/ear pain that he thinks has been there for about a week. On exam this is a hard approximately 13 cm x13.5 cm inch mass that extends from the left mastoid to mid mandible and neck. Neuro exam negative. In ED, vitals stable. EKG NS with no ST elevations/deviations. CT head with no acute findings. CXR with no acute findings. Lab findings remarkable for mild leukocytosis with wbc at 10.1, macrocytic anemia with hgb at 13.6, lactic acid initially elevated at 16.5, now wnl at 1.1. Of note urine drug screen/alcohol negative. Per patient's son, there is no official mental health diagnosis for patient but he has had multiple episode of psychosis with multiple hospitalizations since 2009. He also reports polysubstance abuse. Patient became increasingly combative overnight with staff and refusing to stay in his room and attempting to enter multiple patient's room on the medical surgical floor. For the safety of the patient, staff, and other patients in the hospital, the patient was placed in four way restraints. [facility] consulted, ED obtained, and patient to transfer to [facility] at [facility]. Of note, records obtained from [facility] regarding neck mass. Patient is currently being worked up for head and neck cancer with Dr. Rene Petty. Discharge Note Latest Assessment & Plan (1) Encephalopathy Current Visit: Yes Status: Acute Assessment & Plan: -Head CT with no acute findings/ ? if seizure related -CXR/UA/UDS unremarkable -EKG NS with no ST elevation/deviations -NPO until swallow study -ammonia level WNL -IVF -TSH, B12 -Bcult pending -avoid narcotics -ativan prn for severe agitation -CIWA protocol ? withdrawal -orientation protocol 10/13: -Per son's report no h/o mental health diagnosis - multi episodes of acute psychosis with hospitalization since 2009. Son reports patient has polysubstance abuse Code(s): G93.40 - ENCEPHALOPATHY, UNSPECIFIED (2) History of seizure disorder Current Visit: Yes Status: Acute Assessment & Plan: -continue home keppra/ativa -seizure precautions -ativan prn for seizure activity -neuro checks -supplemental oxygen PRN -ABG if significant lethargy/hypoxia Code(s): Z86.69 - PERSONAL HISTORY OF DIS OF THE NERVOUS SYS AND SENSE ORGANS (3) Leukocytosis Current Visit: Yes Status: Acute Assessment & Plan: -mild -UA negative -CXR negative -bcult pending -CT neck ordered for palpable mass to left neck -afebrile Code(s): D72.829 - ELEVATED WHITE BLOOD CELL COUNT, UNSPECIFIED (4) Mass of left side of neck Current Visit: Yes Status: Acute Assessment & Plan: -Patient states this has been there for about a week - patient not reliable historian -CT neck w/ co for evaluation 10/13: -Records obtained from [facility] as patient is unable to provide history. Patient follows with Dr. Rene Petty and is being worked up OP for head and neck cancer, per pt's son, patient non-compliant with follow up appts. VTE: Bilateral SCD PPI: Protonix Dispo 1-2 days Code: Full Code(s): G93.40 - ENCEPHALOPATHY, UNSPECIFIED I spent 35 minutes [id number] with the patient on the day of discharge performing discharge exam, discussing hospital stay and discharge instructions with patient and caregivers, preparation of discharge records, prescriptions & referral forms and addressing any questions/concerns the patient had as documented above. - Vitals & Intake/Output Vital Signs: Vital Signs Temperature 98.9 F 10/14/23 12:48 Pulse Rate 143 H 10/14/23 14:25 Respiratory Rate 24 10/14/23 14:25 Blood Pressure 172/101 10/14/23 12:48 O2 Sat by Pulse Oximetry 98 10/14/23 12:48 Intake & Output: Intake & Output 10/12/23 10/13/23 10/14/23 10/15/23 11:59 11:59 11:59 11:59 Intake Total 1206 800 Output Total 950 Balance 256 800 Weight 79.8 kg - Lab Result Diagrams: 10/13/23 06:05 10/13/23 09:15 Lab Results-Last 24 Hrs: Lab Results-Last 24 Hours 10/13/23 10/13/23 10/13/23 Range/Units 05:20 13:04 14:44 POC Glucometer 88 (74 to 106) mg/dL Magnesium 2.1 (1.6-2.3) mg/dL Creatine Kinase 107 (55-170) U/L Vitamin B12 344 (239-931) pg/mL TSH 3rd Generation 1.923 (0.470-4.680) mIU/L Cortisol 26.3 H (6.2-19.4) ug/dL - Radiology Exams Ordered Rad Exams-Entire Visit: Radiology Procedures Category Date Time Status CHEST 1 VIEW (PORTABLE) Stat Exams 10/13/23 07:54 Completed HEAD WITHOUT CONTRAST [CT] Stat Exams 10/13/23 05:55 Completed NECK WITH CONTRAST [CT] Stat Exams 10/13/23 12:59 Completed - Procedures and Test Procedures and Tests throughout Hospitalization: Therapy Orders & Screens 10/13/23 13:07 Respiratory Therapy Consult ONCE Comment: Reason For Exam: Diagnosis: Seizure/ encephalopathy/ benzo withdrawal Discharge Exam General Appearance: no apparent distress Neurologic Exam: confusion, agitation Neck Exam: other (Left neck mass) Extremity Exam: normal inspection Skin Exam: normal color Final Diagnosis/Problem List - Final Discharge Diagnosis/Problem (1) Encephalopathy Current Visit: Yes Status: Acute Code(s): G93.40 - ENCEPHALOPATHY, UNSPECIFIED (2) History of seizure disorder Current Visit: Yes Status: Acute Code(s): Z86.69 - PERSONAL HISTORY OF DIS OF THE NERVOUS SYS AND SENSE ORGANS (3) Leukocytosis Current Visit: Yes Status: Acute Code(s): D72.829 - ELEVATED WHITE BLOOD CELL COUNT, UNSPECIFIED (4) Mass of left side of neck Current Visit: Yes Status: Acute Code(s): R22.1 - LOCALIZED SWELLING, MASS AND LUMP, NECK - Discharge Disposition: [facility] Condition: Fair Prescriptions: Continue levETIRAcetam [Levetiracetam] 500 mg PO BID ALPRAZolam [Alprazolam] 2 mg PO UD Follow up with: DOCTOR,NO FAMILY [Primary Care Provider] -
== END 2023-10-14 15:55 ==
LOC: ED 05:41 → MED SURG 10:31
PROVIDERS: ADMIT Internal Medicine; ATTEND Internal Medicine
DX: G93.40 Encephalopathy, unspecified (principal); Z86.79 Personal history of other diseases of the circulatory system; D72.829 Elevated white blood cell count, unspecified; R22.1 Localized swelling, mass and lump, neck; Z59.6 Low income; R41.82 Altered mental status, unspecified; F13.239 Sedative, hypnotic or anxiolytic dependence with withdrawal, unspecified
CPT/HCPCS: 36000; 36415; 70450; 70491; 71045; 80048; 80053; 80143; 80179; 80307; 81001; 82077; 82140; 82533; 82550; 82607; 82947; 83605; 83735; 84145; 84443; 85025; 87040; 90791; 93005; 93041; 93268; 94760; 96360; 96365; 96374; 96375; 99285; G0378; P9612; Q3014; J0360; J1953; J2060; A9270-GY